=== PATIENT | male | born 1960 | race African-American/Black ===

== ENCOUNTER 2016-08-11 23:27 | Emergency (ER) | payer OTHER ==
[~2016-08-11] VITALS: Ht 182.9 cm; Wt 119.4 kg
[~2016-08-11 23:27] MED LIST: ASPIRIN325 MG PO; ASPIRIN81 M1 PO; ATENOLOL25 M1 PO; ATENOLOL50 MG PO; AZITHROMYCIN250 MG1 PO; CRESTOR20 MG PO; DESYREL12.5 MG PO; GABAPENTIN400 MG PO; HYDROCHLOROTH12.5 M3 PO; NOHOMEMEDS; PANTOPRAZOLE SO40 MG; PANTOPRAZOLE SO40 MG PO; PERCOCET 5/31 TABLET PO; PREDNISONE10 MG PO; PRILOSEC20 MG PO; SIMVASTATIN20 MG PO; TAMSULOSIN HCL0.4 MG PO; TENORMIN25 MG PO; TENORMIN50 MG PO; TRAMADOL HCL50 MG PO; TRAZODONE HCL50 MG PO; XANAX0.25 MG PO
[2016-08-12 00:28] LABS: HEMATOCRIT 41.9 % (38.0-50.0); MCH 32.3 PG (29.0-34.0); MCHC 33.4 G/DL (30.0-36.0); MCV 96.5 FL (86-99); MEAN PLAT.VOLUME 9.7 uM^3 (9.0-12.4); PLATELET COUNT 190 K/uL (156-360); RBC DIS.WIDTH-CV 12.9 % (11.8-14.6); RED BLOOD COUNT 4.34 M/uL (4.00-5.50); WHITE BLOOD COUNT 5.5 K/uL (4.1-10.2)
[2016-08-12 00:38] LABS: INTER. NORMALIZED RATIO 1.1; PROTHROMBIN TIME 11.5 (9.2-11.2); PTT 28.7 (25-32)
[2016-08-12 00:41] LABS: CHLORIDE 107 mEq/L (99-109); POTASSIUM 3.5 mEq/L (3.7-5.4); SODIUM 137 mEq/L (136-147)
[2016-08-12 00:43] LABS: GLUCOSE 122 mg/dL (70-99)
[2016-08-12 00:44] LABS: ANION GAP 10 MEQ/L (2-14)
[2016-08-12 00:47] LABS: GFR ESTIMATE (CALCULATED) > 59 mL/min/
[2016-08-12 00:48] LABS: TROP-I INTERPRETATION NEGATIVE; TROPONIN-I 0.02 ng/mL (0.0-0.30); UREA NITROGEN (BUN) 8 mg/dL (9-23)
[2016-08-12 01:05] LABS: D-DIMER ELISA 0.35 mg/L FEU (< 0.57)
[2016-08-12] MEDS ORDERED: DELTASONE20 M1 PO (02:27)
[2016-08-12] MEDS ORDERED: PROAIR HFA8.5 GM IH (02:27)
[2016-08-12 03:11] VITALS: BP 126/77
== END 2016-08-12 03:13 | disposition home or self-care (01) ==
LOC: EME 23:27
PROVIDERS: Emergency Medicine
DX: J20.8 Acute bronchitis due to other specified organisms (principal); I10 Essential (primary) hypertension; R11.0 Nausea; R19.7 Diarrhea, unspecified; E78.5 Hyperlipidemia, unspecified; Z72.0 Tobacco use
CPT/HCPCS: 71010; 80048; 84484; 85027; 85379; 85610; 85730; 93005; 94640; 94640 76; 99281; 99285; J7512

== ENCOUNTER 2017-01-06 12:11 | Emergency (ER) | payer OTHER ==
[~2017-01-06] VITALS: Ht 182.9 cm; Wt 115.2 kg
[~2017-01-06 12:11] MED LIST changes: +DELTASONE20 M1 PO; +PROAIR HFA8.5 GM IH
[2017-01-06 13:13] LABS: EOSINOPHIL COUNT 0.1 K/uL (0-0.3); IMMATURE GRANULOCYTE (%) 0.2 % (0.0-0.7); INSTRUMENT ABS NEUTROPHIL CT 4.4 K/uL; LYMPHOCYTE COUNT 2.7 K/uL (1.0-2.8); MCH 32.4 PG (29.0-34.0); MCHC 34.1 G/DL (30.0-36.0); MEAN PLAT.VOLUME 9.5 uM^3 (9.0-12.4); MONOCYTE COUNT 0.8 K/uL (0-0.8); NEUTROPHIL (%) 54.7 % (45-76); NEUTROPHIL COUNT 4.4 K/uL (1.8-6.4); PLATELET COUNT 205 K/uL (156-360); RBC DIS.WIDTH-CV 13.2 % (11.8-14.6); RBC DIS.WIDTH-SD 46.1 % (39-53); RED BLOOD COUNT 4.63 M/uL (4.00-5.50); WHITE BLOOD COUNT 8.1 K/uL (4.1-10.2)
[2017-01-06 13:21] LABS: CHLORIDE 107 mEq/L (99-109); POTASSIUM 4.2 mEq/L (3.7-5.4); SODIUM 138 mEq/L (136-147)
[2017-01-06 13:23] LABS: GLUCOSE 105 mg/dL (70-99)
[2017-01-06 13:24] LABS: ANION GAP 7 MEQ/L (2-14)
[2017-01-06 13:25] LABS: TOTAL BILIRUBIN 1.7 mg/dL (0.0-1.0)
[2017-01-06 13:26] LABS: ALKALINE PHOSPHATASE 73 IU/L (3-129)
[2017-01-06 13:27] LABS: GFR ESTIMATE (CALCULATED) > 59 mL/min/
[2017-01-06 13:28] LABS: UREA NITROGEN (BUN) 7 mg/dL (9-23)
[2017-01-06 13:33] LABS: TROP-I INTERPRETATION NEGATIVE; TROPONIN-I 0.02 ng/mL (0.0-0.30)
[2017-01-06 15:31] LABS: TROP-I INTERPRETATION NEGATIVE; TROPONIN-I 0.02 ng/mL (0.0-0.30)
[2017-01-06 16:52] VITALS: BP 125/92
== END 2017-01-06 16:54 | disposition home or self-care (01) ==
LOC: EME 12:11
PROVIDERS: Emergency Medicine
DX: R00.2 Palpitations (principal); I10 Essential (primary) hypertension; E78.5 Hyperlipidemia, unspecified; K21.9 Gastro-esophageal reflux disease without esophagitis; Z72.0 Tobacco use
CPT/HCPCS: 71010; 80053; 84484; 85025; 93005; 99281; 99284

== ENCOUNTER 2017-06-21 23:53 | Emergency (ER) | payer OTHER ==
[~2017-06-21] VITALS: Ht 182.9 cm; Wt 116.5 kg
[~2017-06-21 23:53] MED LIST changes: -GABAPENTIN400 MG PO; +NEURONTIN100 MG PO
[2017-06-22 00:06] VITALS: BP 142/93
[2017-06-22 00:24] LABS: HEMATOCRIT 45.2 % (38.0-50.0); HEMOGLOBIN 15.6 G/DL (12.5-16.6); MCH 33.5 PG (29.0-34.0); MCHC 34.5 G/DL (30.0-36.0); PLATELET COUNT 209 K/uL (156-360); RBC DIS.WIDTH-CV 12.9 % (11.8-14.6); RBC DIS.WIDTH-SD 46.3 % (39-53); RED BLOOD COUNT 4.66 M/uL (4.00-5.50)
[2017-06-22 00:33] LABS: CHLORIDE 107 mEq/L (99-109); POTASSIUM 4.4 mEq/L (3.7-5.4); SODIUM 134 mEq/L (136-147)
[2017-06-22 00:34] LABS: GLUCOSE 133 mg/dL (70-99)
[2017-06-22 00:38] LABS: CREATININE 1.2 mg/dL (0.6-1.3); GFR ESTIMATE (CALCULATED) > 59 mL/min/ (58.99-99999)
[2017-06-22 00:39] LABS: UREA NITROGEN (BUN) 11 mg/dL (9-23)
[2017-06-22 00:45] LABS: TROP-I INTERPRETATION NEGATIVE; TROPONIN-I 0.01 ng/mL (0.0-0.30)
[2017-06-22 02:09] LABS: APPEARANCE CLEAR ((CLEAR)); BILIRUBIN NEGATIVE; BLOOD NEGATIVE; COLOR YELLOW ((YELLOW)); GLUCOSE (STRIP) NEGATIVE; KETONES NEGATIVE; LEUKOCYTES NEGATIVE; NITRITE NEGATIVE; PROTEIN (STRIP) NEGATIVE; SPECIFIC GRAVITY 1.025 (1.000-1.030)
== END 2017-06-22 03:09 | disposition home or self-care (01) ==
LOC: EME 23:53 → EXP 23:53
PROVIDERS: Physician Assistant
DX: E16.2 Hypoglycemia, unspecified (principal); I10 Essential (primary) hypertension; E78.5 Hyperlipidemia, unspecified; K21.9 Gastro-esophageal reflux disease without esophagitis; F41.9 Anxiety disorder, unspecified; Z87.440 Personal history of urinary (tract) infections; Z72.0 Tobacco use; Z88.5 Allergy status to narcotic agent
CPT/HCPCS: 71046; 80048; 81003; 82948; 84484; 85027; 93005

== ENCOUNTER 2017-06-24 17:11 | Inpatient (IN) | payer OTHER ==
[~2017-06-24] VITALS: Ht 182.9 cm; Wt 116.1 kg
[2017-06-24 17:34] LABS: HEMATOCRIT 45.9 % (38.0-50.0); HEMOGLOBIN 15.7 G/DL (12.5-16.6); MCH 33.3 PG (29.0-34.0); MCHC 34.2 G/DL (30.0-36.0); MCV 97.5 FL (86-99); PLATELET COUNT 192 K/uL (156-360); RED BLOOD COUNT 4.71 M/uL (4.00-5.50); WHITE BLOOD COUNT 9.2 K/uL (4.1-10.2)
[2017-06-24 17:42] LABS: CHLORIDE 103 mEq/L (99-109); POTASSIUM 3.9 mEq/L (3.7-5.4); PTT 27.5 SEC (25-37); SODIUM 135 mEq/L (136-147)
[2017-06-24 17:44] LABS: GLUCOSE 155 mg/dL (70-99)
[2017-06-24 17:48] LABS: CREATININE 1.2 mg/dL (0.6-1.3); GFR ESTIMATE (CALCULATED) > 59 mL/min/ (58.99-99999)
[2017-06-24 17:49] LABS: UREA NITROGEN (BUN) 13 mg/dL (9-23)
[2017-06-24 17:56] LABS: TROP-I INTERPRETATION NEGATIVE; TROPONIN-I 0.01 ng/mL (0.0-0.30)
[2017-06-24] MEDS ORDERED: OXYCODONE HCL10 MG PO (18:32)
[2017-06-24] MEDS ORDERED: LOW DOSE ASPIRI81 M1 PO (18:32)
[2017-06-24] MEDS ORDERED: PROTONIX40 MG PO (18:39)
[2017-06-24] MEDS ORDERED: FLEXERIL5 MG PO (18:41)
[2017-06-24] MEDS ORDERED: PROAIR HFA8.5 GM IH (18:41)
[2017-06-24] MEDS ORDERED: EPIPEN ADU0.3 MG/0.3 IM (18:42)
[2017-06-24] MEDS ORDERED: AMPICILLIN TRI500 MG PO (18:57)
[2017-06-24 22:41] VITALS: BP 140/75
[2017-06-25 01:17] LABS: ALBUMIN 3.7 g/dL (3.2-4.8)
[2017-06-25 01:20] LABS: TOTAL PROTEIN 6.7 g/dL (6.4-8.3)
[2017-06-25 01:22] LABS: TOTAL BILIRUBIN 0.8 mg/dL (0.0-1.0)
[2017-06-25 01:23] LABS: ALKALINE PHOSPHATASE 71 IU/L (3-129)
[2017-06-25 01:25] LABS: AST (GOT) 39 IU/L (2-34); DIRECT BILIRUBIN 0.3 mg/dL (0.0-0.3)
[2017-06-25 01:26] LABS: ALT (GPT) 89 IU/L (3-49); LIPASE 20 U/L (1.0-51.0)
[2017-06-25 01:27] LABS: TROP-I INTERPRETATION NEGATIVE; TROPONIN-I 0.02 ng/mL (0.0-0.30)
[2017-06-25 03:09] LABS: HDL CHOLESTEROL 32 MG/DL (Desirable>=40); LDL CHOLESTEROL 77 mg/dL (Desirable<100); NON-HDL CHOLESTEROL 93 mg/dL (Desirable<160); TOTAL CHOLESTEROL 125 mg/dL (Desirable<200); TRIGLYCERIDES 82 MG/DL (Normal: <150)
[2017-06-25 04:40] VITALS: BP 142/70
[2017-06-25 06:47] LABS: HEMATOCRIT 43.4 % (38.0-50.0); HEMOGLOBIN 14.5 G/DL (12.5-16.6); MCH 32.3 PG (29.0-34.0); MCHC 33.4 G/DL (30.0-36.0); MCV 96.7 FL (86-99); PLATELET COUNT 208 K/uL (156-360); RBC DIS.WIDTH-CV 12.9 % (11.8-14.6); RBC DIS.WIDTH-SD 45.9 % (39-53); RED BLOOD COUNT 4.49 M/uL (4.00-5.50); WHITE BLOOD COUNT 7.6 K/uL (4.1-10.2)
[2017-06-25 07:13] LABS: CHLORIDE 105 MEQ/L (99-109); CREATININE 1.1 MG/DL (0.6-1.3); GFR ESTIMATE (CALCULATED) > 59 mL/min/ (58.99-99999); POTASSIUM 4.3 MEQ/L (3.7-5.4); SODIUM 138 MEQ/L (136-147); UREA NITROGEN (BUN) 13 mg/dL (9-23)
[2017-06-25 07:23] LABS: GLUCOSE 106 mg/dL (70-99)
[2017-06-25 07:24] LABS: TROP-I INTERPRETATION NEGATIVE; TROPONIN-I 0.01 ng/mL (0.0-0.30)
[2017-06-25 07:52] VITALS: BP 107/64
[2017-06-25 12:00] VITALS: BP 128/78
[2017-06-25] MEDS ORDERED: AMOXICILLIN500 MG PO (12:34)
[2017-06-25] MEDS ORDERED: NICOTINE PATCH1 EAC2 TD (12:34)
[2017-06-25 16:00] VITALS: BP 126/76
[2017-06-26 12:51] LABS: HEMOGLOBIN A1c (GLYCOHEMOGLOB) 5.7 % (Below 5.7)
== END 2017-06-25 17:36 | disposition home or self-care (01) | DRG 313 ==
LOC: EME 17:11 → EDOF 21:31 → ENRESERV 21:35 → 5SOUTH 22:29
PROVIDERS: Emergency Medicine; Hospitalist
DX: R07.89 Other chest pain (principal); F41.9 Anxiety disorder, unspecified; E87.1 Hypo-osmolality and hyponatremia; R00.2 Palpitations; I49.3 Ventricular premature depolarization; E11.40 Type 2 diabetes mellitus with diabetic neuropathy, unspecified; E78.5 Hyperlipidemia, unspecified; I10 Essential (primary) hypertension; J44.9 Chronic obstructive pulmonary disease, unspecified; K21.9 Gastro-esophageal reflux disease without esophagitis; N40.0 Benign prostatic hyperplasia without lower urinary tract symptoms; B19.20 Unspecified viral hepatitis C without hepatic coma; G89.29 Other chronic pain; M54.2 Cervicalgia; M54.5 Low back pain; E66.9 Obesity, unspecified; F17.210 Nicotine dependence, cigarettes, uncomplicated; Z98.1 Arthrodesis status; Z88.5 Allergy status to narcotic agent; Z90.49 Acquired absence of other specified parts of digestive tract
CPT/HCPCS: 70450; 70496; 70498; 70551; 80047; 80048; 80061; 80076; 81003; 83036; 83690; 84484; 85027; 85610; 85730; 93005; 99202; 99281; 99285; J1650

== ENCOUNTER 2017-06-30 03:29 | Observation (INO) | payer OTHER ==
[~2017-06-30] VITALS: Ht 182.9 cm; Wt 174.5 kg
[~2017-06-30 03:29] MED LIST changes: +AMOXICILLIN500 MG PO; +AMPICILLIN TRI500 MG PO; +EPIPEN ADU0.3 MG/0.3 IM; +FLEXERIL5 MG PO; +LOW DOSE ASPIRI81 M1 PO; +NICOTINE PATCH1 EAC2 TD; +OXYCODONE HCL10 MG PO; +PROTONIX40 MG PO
[2017-06-30 04:40] LABS: HEMATOCRIT 44.2 % (38.0-50.0); HEMOGLOBIN 15.3 G/DL (12.5-16.6); MCH 33.4 PG (29.0-34.0); MCHC 34.6 G/DL (30.0-36.0); MCV 96.5 FL (86-99); PLATELET COUNT 198 K/uL (156-360); RBC DIS.WIDTH-CV 12.8 % (11.8-14.6); RBC DIS.WIDTH-SD 45.5 % (39-53); RED BLOOD COUNT 4.58 M/uL (4.00-5.50); WHITE BLOOD COUNT 7.4 K/uL (4.1-10.2)
[2017-06-30 04:54] LABS: CHLORIDE 106 mEq/L (99-109); POTASSIUM 4.4 mEq/L (3.7-5.4); SODIUM 137 mEq/L (136-147)
[2017-06-30 04:56] LABS: GLUCOSE 138 mg/dL (70-99)
[2017-06-30 05:00] LABS: CREATININE 1.1 mg/dL (0.6-1.3); GFR ESTIMATE (CALCULATED) > 59 mL/min/ (58.99-99999)
[2017-06-30 05:01] LABS: UREA NITROGEN (BUN) 14 mg/dL (9-23)
[2017-06-30 05:02] LABS: TROP-I INTERPRETATION NEGATIVE; TROPONIN-I 0.01 ng/mL (0.0-0.30)
[2017-06-30 06:00] LABS: MAGNESIUM 2.5 mg/dL (1.3-2.7)
[2017-06-30 06:07] LABS: CREATINE KINASE 319 IU/L (1-294)
[2017-06-30] MEDS ORDERED: BUSPIRONE HCL10 MG PO (07:19)
[2017-06-30] MEDS ORDERED: GABAPENTIN300 MG PO (07:20)
[2017-06-30] MEDS ORDERED: VERAPAMIL SR180 MG PO (09:39)
[2017-06-30] MEDS ORDERED: CENTRUM SILVER1 EAC5 PO (10:18)
[2017-06-30 11:39] LABS: TROP-I INTERPRETATION NEGATIVE; TROPONIN-I 0.02 ng/mL (0.0-0.30)
[2017-06-30 15:49] VITALS: BP 145/83
[2017-06-30 17:14] LABS: TROP-I INTERPRETATION NEGATIVE; TROPONIN-I 0.02 ng/mL (0.0-0.30)
[2017-06-30 19:23] VITALS: BP 140/76
[2017-07-01 00:36] VITALS: BP 135/70
[2017-07-01 04:34] VITALS: BP 108/58
[2017-07-01 07:56] VITALS: BP 135/63
[2017-07-01 12:11] VITALS: BP 138/89
[2017-07-01] MEDS ORDERED: NICOTINE PATCH1 EAC2 TD (13:28)
== END 2017-07-01 15:55 | disposition home or self-care (01) ==
LOC: EME 03:29 → EDOF 08:54 → 5WEST 08:54 → EDOF 08:54 → ENRESERV 08:57 → 5WEST 15:45
PROVIDERS: Internal Medicine
DX: E16.1 Other hypoglycemia (principal); M62.82 Rhabdomyolysis; I10 Essential (primary) hypertension; E78.5 Hyperlipidemia, unspecified; Z86.19 Personal history of other infectious and parasitic diseases; Z87.19 Personal history of other diseases of the digestive system; Z88.5 Allergy status to narcotic agent; F17.200 Nicotine dependence, unspecified, uncomplicated; Z80.3 Family history of malignant neoplasm of breast
CPT/HCPCS: 71046; 80048; 82550; 82948; 83525; 83735; 84443; 84484; 84681 90; 85027; 86140; 93005; 94640; 94640 76; 99202; 99281; 99285; G0378; J7042; J7060